=== PATIENT | male | born 1990 | race Caucasian/White ===

== ENCOUNTER 2016-08-13 | Outpatient (CLI) | payer OTHER | END 2016-08-13 17:48 | disposition critical access hospital (66) | DX: R56.9 Unspecified convulsions (principal) | CPT/HCPCS: A0425; A0427 ==

== ENCOUNTER 2016-08-13 18:11 | Emergency (ER) | payer OTHER ==
[2016-08-13] MEDS ORDERED: LORazepam 2 MG/ML SYRINGE ONE (18:18)
[2016-08-13] MEDS ORDERED: SODIUM CHLORIDE 0.9% 1,000 ML IV ONE (18:19)
[2016-08-13] MEDS ORDERED: LORazepam 2 MG/ML SYRINGE IVP STA (18:21)
[2016-08-13] MEDS ORDERED: diazePAM INJ 5 MG/ML SYRINGE ONE (18:43)
[2016-08-13] MEDS ORDERED: diazePAM INJ 5 MG/ML SYRINGE IVP STA (18:43)
[2016-08-13] MEDS ORDERED: lamoTRIgine 100 MG TABLET PO STA (20:08)
== END 2016-08-13 22:11 | disposition home or self-care (01) ==
DX: F44.5 Conversion disorder with seizures or convulsions (principal); F32.9 Major depressive disorder, single episode, unspecified; F41.0 Panic disorder [episodic paroxysmal anxiety]
CPT/HCPCS: 36415; 80053; 80320; 83605; 83690; 84146; 85025; 96361; 96374; 96375; 99284; A9270; J2060